=== PATIENT | female | born 1995 | race Two or more races ===

== ENCOUNTER 2023-08-25 15:29 | Emergency (ER) | payer OTHER ==
[~2023-08-25] VITALS: Ht 160 cm; Wt 57.2 kg
[2023-08-25] MEDS ORDERED: CEFTRIAXONE SODIUM 1,000 MG VIAL IM STA (17:12)
[2023-08-25 17:53] LABS: HEMATOCRIT 38.4 % (36.0-45.00); MEAN CELL VOLUME 73.1 fL (80.00-100.00); MEAN CORPUSCULAR HEMOGLOBIN 24.7 pg (27.00-32.0); MEAN CORPUSCULAR HGB CONC 33.7 g/dl (32.0-36.0); PLATELET COUNT 265 K/uL (150-450); RED BLOOD COUNT 5.25 M/uL (4.00-6.00); RED CELL DISTRIBUTION WIDTH 14.4 % (11.5-14.5)
[2023-08-25] MEDS ORDERED: ZITHROMAX500 MG PO (18:57)
== END 2023-08-25 19:13 | disposition home or self-care (01) ==
LOC: ER 15:29
PROVIDERS: Emergency Medicine
DX: J40 Bronchitis, not specified as acute or chronic (principal); Z20.822 Contact with and (suspected) exposure to COVID-19